=== PATIENT | female | born 1995 | race Caucasian/White ===

== ENCOUNTER 2016-08-27 13:50 | Emergency (ER) | payer OTHER ==
--- NOTE | 2016-08-27 15:48 | DIAGNOSTIC IMAGING REPORT ---
PROCEDURE: CT HEAD WITHOUT CONTRAST INDICATION: MENTAL STATUS CHANGE TECHNIQUE: Axial CT images were acquired through the head. Coronal and sagittal reformations were created. COMPARISON: None. FINDINGS: No intracranial hemorrhage or extraaxial fluid collections. Ventricles are normal in size, shape and position. There is no mass, mass effect or midline shift. The valenzuela-white matter differentiation is normal. There is no edema. The calvarium is intact. The paranasal sinuses and mastoid air cells are normally aerated. The extracranial soft tissues and orbits are normal. IMPRESSION: 1. No CT evidence of acute intracranial process. 2. Findings discussed with SILVIA Diaz, covering for Dr. Benitez at [address] scans at this facility use dose modulation, iterative reconstruction, and/or weight-based dosing when appropriate to reduce radiation dose to as low as reasonably achievable.
--- NOTE | 2016-08-27 17:07 | ED ORDER SUMMARY ---
..... Patient: BECKY GUILLORY OrderSheet [facility] VisitID: [id number] [place] [address] 20y, F Registration Date/Time: 08/27/2016 ORDER SHEET Weight: 74.3 kg (stated) Allergies: Eye Drops GENERAL ORDERS: CBC w Diff Urgent (14:08/27/2016 Raul Kirkland) (Ack 14:23 TBergley) (15:15 SRoberts R.N.) CMP Urgent (14:08/27/2016 Raul Kirkland) (Ack 14:23 TBergley) (15:15 Ashanti R.N.) PT with INR Urgent (14:08/27/2016 Raul Kirkland) (Ack 14:23 TBergley) (15:15 Ashanti R.N.) PTT Urgent (14:08/27/2016 Raul Kirkland) (Ack 14:23 TBergley) (15:15 oberts R.N.) UA-Culture if indicated Urgent (14:08/27/2016 Raul Kirkland) (Ack 14:23 TBergley) (15:15 oberts R.N.) Serum Quantitative Urgent (14:08/27/2016 Raul Kirkland) (Ack 14:23 TBergley) (15:15 Ashanti R.N.) Heart Tones (14:08/27/2016 Raul Kirkland) (Ack 14:23 TBergley) (15:32 KWilliams R.N.) CT Head wo Cont Urgent (14:34 08/27/2016 Raul Kirkland) (Ack 14:36 TBergley) (15:15 SRobernena R.N.) MEDICATION ORDERS: IV FLUIDS: IV NS : initial bolus 1000 mL (1000 mL/hr), then none - for X1 (NOW) (14:08/27/2016 Raul Kirkland) (15:35 SRoberts R.N.) ORDER SHEET NOTES: [Electronically signed by Linnette Shore R.N. (19:08/27/2016)] [Electronically signed by Jl Benitez Dr. (06:09 08/30/2016)] [Electronically locked/signed by Linnette Shore R.N. (19:08/27/2016)]
--- NOTE | 2016-08-27 17:07 | ED ORDER SUMMARY ---
..... Patient: BECKY GUILLORY OrderSheet [facility] VisitID: [id number] [place] [address] 20y, F Registration Date/Time: 08/27/2016 ORDER SHEET Weight: 74.3 kg (stated) Allergies: Eye Drops GENERAL ORDERS: CBC w Diff Urgent (14:08/27/2016 Raul Kirkland) (Ack 14:23 TBergley) (15:15 SRoberts R.N.) CMP Urgent (14:08/27/2016 Raul Kirkland) (Ack 14:23 TBergley) (15:15 Ashanti R.N.) PT with INR Urgent (14:08/27/2016 Raul Kirkland) (Ack 14:23 TBergley) (15:15 Ashanti R.N.) PTT Urgent (14:08/27/2016 Raul Kirkland) (Ack 14:23 TBergley) (15:15 oberts R.N.) UA-Culture if indicated Urgent (14:08/27/2016 Raul Kirkland) (Ack 14:23 TBergley) (15:15 oberts R.N.) Serum Quantitative Urgent (14:08/27/2016 Raul Kirkland) (Ack 14:23 TBergley) (15:15 Ashanti R.N.) Heart Tones (14:08/27/2016 Raul Kirkland) (Ack 14:23 TBergley) (15:32 KWilliams R.N.) CT Head wo Cont Urgent (14:34 08/27/2016 Raul Kirkland) (Ack 14:36 TBergley) (15:15 SRobernena R.N.) MEDICATION ORDERS: IV FLUIDS: IV NS : initial bolus 1000 mL (1000 mL/hr), then none - for X1 (NOW) (14:08/27/2016 Raul Kirkland) (15:35 SRoberts R.N.) ORDER SHEET NOTES: [Electronically signed by Linnette Shore R.N. (19:08/27/2016)] [Electronically signed by Jl Benitez Dr. (06:09 08/30/2016)] [Electronically locked/signed by Linnette Shore R.N. (19:08/27/2016)]
--- NOTE | 2016-08-27 17:07 | ED NURSING NOTES ---
Clinical Report - Nurses [facility] [address] [place] [address] 08/27/2016 13:52 Patient: BECKY GUILLORY TRIAGE Triage time 13:50. Acuity: LEVEL 3. Chief Complaint: (dizzy). Alert. --14:00 Shubham Weaver R.N. 13:53 08/27/16. BP: 124/70. HR: 95. RR: 18. O2 saturation: 98%. Temp: 98.4 F. Pain level now 06/30. --14:00 Shubham Weaver R.N. Weight: 74.3 kg stated. Height/Length: 60 inches Per Patient. BMI: 32. --13:57 Shubham Weaver R.N. Medications Nausea med. --13:58 Shubham Weaver R.N. Acid reflux med. --13:58 Shubham Weaver R.N. Allergies Eye Drops. --13:59 Shubham Weaver R.N. History Arrived by private vehicle. Historian: patient. Accompanied by family. Primary physician (Rahat (ob-cable tester)). ( 39 weeks . pt presents with c/o "I think I had a stroke." FAST exam negative. She states she was outside and felt dizzy with blurry vision and states she was having memory problems. Denies any PIH, Preeclampsia or problems with . Tearful in triage, anxious, c/o numb fingers. Accompanied by sister in law who states pt is having trouble remembering baby's name, common words, etc. Pt denies substance use. Denies contractions other than BH contractions.). PAST MEDICAL HX: OB history: G 1; P 0; Ab 0. SOCIAL HX: Current some days light tobacco smoker (cigarette)- less than 1/2 a pack per day. No alcohol use or drug use. FALL RISK ASSESSMENT: Fall risk assessment completed. No fall risk identified. NUTRITIONAL RISK ASSESSMENT: The nutritional risk assessment revealed no deficiencies. FUNCTIONAL ASSESSMENT: Functional assessment: no impairments noted. LEARNING NEEDS ASSESSMENT: The learning needs assessment revealed no barriers. SKIN INTEGRITY ASSESSMENT: Skin integrity risk assessment completed. No skin integrity risk identified. --14:00 Shubham Weaver R.N. 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 --14:00 Shubham Weaver R.N. This started just prior to arrival. --14:00 Shubham Weaver R.N. PROBLEMS: no known problems. ADDITIONAL SURGERIES: no known surgeries. Interventions ID band on patient. To treatment room. --14:00 Shubham Weaver R.N. PHYSICAL ASSESSMENT 14:01 08/27/16. Ambulatory to room. GENERAL / NEURO / PSYCH: Oriented X 4. ( slow responses). RESPIRATORY: Respirations not labored. CVS: Capillary refill less than 2 seconds. GI / : Abdomen soft. SKIN: Skin is warm and dry. --14:01 Shubham Weaver R.N. NURSING PROGRESS NOTES The plan of care for this patient has been created. Patient gowned. Call light placed in reach. Bed placed in lowest position. Brakes of bed on. --14:01 Shubham Weaver R.N. 15:15 08/27/2016 Site #1 started via IV in the left antecubital space with an 20g angiocath, with aseptic technique and good blood return; one attempt. Blood drawn: rainbow set. Labeled in the presence of the patient and sent to the lab. Saline lock flushed with 10 mL saline. --15:15 Linnette Shore R.N. 15:25 08/27/2016 Started bag #1 1000 mL IV Fluids IV NS (Saline); bolus of 1000 mL over 1 hour(s) then at 1000 mL/hr over 1 hour(s) via site #1 via IV pump. Allergies verified and confirmed 5 rights. IV patency established. IV site checked: no pain, redness, or swelling. IV flushed thoroughly pre- and post-medication administration. --15:35 Linnette Shore R.N. DISPOSITION / DISCHARGE 17:25. Condition at departure: improved. No learning barriers present. Discharge instructions provided and reviewed with the patient and spouse. Patient verbalized understanding. Written instructions provided in [place]. ( Patient to go directly to [place] L&D.). The patient was accompanied by spouse and discharged (Prov L/D). She left the Emergency Department ambulatory and via private vehicle. Spouse driving. Medication list reviewed and validated. --19:23 Linnette Shore R.N. 17:25 08/27/16. BP: 122/72. HR: 70. RR: 16. O2 saturation: 100% on room air. Temp: deferred. Pain level now: 06/30. 16:10 08/27/16. BP: 118/69. HR: 69. RR: 18. O2 saturation: 100% on room air. 15:10 08/27/16. BP: 118/74. HR: 72. RR: 16. O2 saturation: 100% on room air. 13:53 08/27/16. BP: 124/70. HR: 95. RR: 18. O2 saturation: 98%. Temp: 98.4 F. Pain level now 06/30. --19:23 Linnette Shore R.N. Locked/Released at 08/27/2016 19:23 by Linnette Shore R.N.
--- NOTE | 2016-08-27 17:07 | ED CLINICAL REPORT ---
Clinical Report - Physicians/Mid Levels [facility] [address] [place] [address] 08/27/2016 13:52 Patient: BECKY GUILLORY Arrived- By private vehicle. Historian- patient. HISTORY OF PRESENT ILLNESS Chief Complaint: altered mental status. The patient has had mild difficulty with speech (difficulty finding words and names). No visual disturbance or impaired swallowing. This started today, patient was last known well (2 hours prior to arrival) and is still present but is improving. It was abrupt in onset and has been constant but is not gone now. At its maximum deficit described as mild. When seen in the E.D., it was almost gone. The patient has had dizziness. No altered mental status, seizure or blackouts. Usually is alert and oriented X3. (reports that she is approximately 36 weeks . No acute abnormalities noted on patient's workup per patient. States that she follows up with a doctor in [facility]. No recent illnesses. Patient reports no other symptoms at this time.). Similar symptoms previously: None. Recent medical care: Not recently seen/assessed. REVIEW OF SYSTEMS No fever, chest pain or difficulty breathing. All systems otherwise negative, except as recorded above. PAST HISTORY See nurses notes. SOCIAL HISTORY Never smoker. No alcohol use or drug use. No recent travel. Is a local resident. PHYSICAL EXAM Appearance: Alert. No acute distress. Head: Head atraumatic. Eyes: Pupils equal, round and reactive to light. ENT: Normal ENT inspection. Airway intact. Pharynx normal. Neck: Normal inspection. Neck supple. CVS: Normal heart rate and rhythm. Heart sounds normal. Pulses normal. Respiratory: No respiratory distress. Breath sounds normal. Abdomen: Soft and nontender. No organomegaly. (gravid uterus with the fundus palpable at the xiphoid process). Back: Normal inspection. Skin: Skin warm and dry. Normal skin color. No rash. Normal skin turgor. Extremities: Extremities exhibit normal ROM. No lower extremity edema. Neuro: Alert. Oriented X 3. Mood/affect normal. Speech normal. Cranial nerves normal (as tested). No cerebellar findings. No motor deficit. No sensory deficit. Reflexes normal. LABS, X-RAYS, AND EKG CT Head: (PROCEDURE: CT HEAD WITHOUT CONTRAST INDICATION: MENTAL STATUS CHANGE TECHNIQUE: Axial CT images were acquired through the head. Coronal and sagittal reformations were created. COMPARISON: None. FINDINGS: No intracranial hemorrhage or extraaxial fluid collections. Ventricles are normal in size, shape and position. There is no mass, mass effect or midline shift. The valenzuela-white matter differentiation is normal. There is no edema. The calvarium is intact. The paranasal sinuses and mastoid air cells are normally aerated. The extracranial soft tissues and orbits are normal. IMPRESSION: 1. No CT evidence of acute intracranial process. 2. Findings discussed with SILVIA Diaz, covering for Dr. Benitez at [address] performed with and without contrast. The study was independently viewed by me and interpreted by the radiologist. The study was discussed with the radiologist (via pacs). Laboratory Tests: UA-Culture if indicated: (NOEMÍ: 08/27/2016 15:00) ( [facility]47[facility] Final results Test Result Flag Units (Reference) URINE COLOR YELLOW URINE APPEARANCE CLEAR URINE GLUCOSE NEGATIVE (NEGATIVE) URINE BILIRUBIN NEGATIVE (NEGATIVE) URINE KETONE NEGATIVE (NEGATIVE) URINE SPECIFIC GRAVITY 1.010 (1.010-1.030) URINE PH 7.0 (5.0-8.0) URINE PROTEIN NEGATIVE (NEGATIVE) URINE UROBILINOGEN 0.2 EU/dL (0.2-1.0) URINE NITRITE NEGATIVE (NEGATIVE) URINE BLOOD NEGATIVE (NEGATIVE) URINE LEUK ESTERASE NEGATIVE (NEGATIVE) URINE RBC NONE SEEN rbc/hpf (0-1) URINE WBC 0-1 wbc/hpf (0-1) URINE EPITHELIAL CELLS 1-3 EPI/hpf (0-5) URINE BACTERIA TRACE (<1+) (NONE SEEN) URINE COMMENT CULT NOT INDICATED URINE CULTURES ARE SET-UP BASED ON THE FOLLOWING CRITERIA:POSITIVE NITRITEPOSITIVE LEUKOCYTE ESTERASEGREATER THAN 10 WHITE BLOOD CELLSMODERATE (2+) OR GREATER BACTERIA CBC w Diff: (NOEMÍ: 08/27/2016 15:05) ( [facility] 08/27/2016 15:30) Final results Test Result Flag Units (Reference) WHITE BLOOD COUNT 10.5 K/uL (4.5-11.5) RED BLOOD COUNT 3.41 L M/uL (4.00-5.20) HEMOGLOBIN 8.6 L gm/dL (12.0-16.0) HEMATOCRIT 26.7 L % (36.0-46.0) MEAN CELL VOLUME 78 L fL (80-100) MEAN CORPUSCULAR HGB 25 L pg (26-34) MEAN CORPUSCULAR HGB CONC 32 g/dL (31-37) RED CELL DISTRIBUTION WIDTH 16.5 H % (11.6-14.8) PLATELET COUNT 312 K/uL (150-400) NEUTROPHIL % 72.4 % (50-75) LYMPH % 18.7 L % (25-40) MONO % 8.5 % (3-14) EOSINOPHIL % 0.2 % (0-4) BASOPHIL % 0.2 % (0-2) PT with INR: (NOEMÍ: 08/27/2016 15:05) ( [facility] 08/27/2016 15:41) Final results Test Result Flag Units (Reference) INR 0.9 (0.8-1.2) Low Intensity Therapy: INR 1.5-2.0 PT range 18.5-23.1Mod.Intensity Therapy: INR 2.0-3.0 PT range 23.1-31.5High Intensity Therapy: INR 2.5-3.5 PT range 27.4-35.5High Intensity Therapy 2: INR 3.0-4.0 PT range 31.5-39.3 APTT 27 SECONDS (24-34) CMP: (NOEMÍ: 08/27/2016 15:05) ( [facility] 08/27/2016 16:02) Final results Test Result Flag Units (Reference) GLUCOSE 83 mg/dL (70-110) BUN 8 mg/dL (7-18) CREATININE 0.7 mg/dL (0.6-1.3) Estimated GFR >60 mL/min Estimated GFR- >60 mL/min Note: Persistent reduction over 3 months in eGFR<60 mL/min/1.73 m2 defines CKD. Patients with eGFR values>=60 mL/min/1.73 m2 may also have CKD if evidence ofpersistent proteinuria. Additional information may be foundat www.kidney.org. SODIUM 137 mmol/L (136-145) POTASSIUM 4.1 mmol/L (3.5-5.1) CHLORIDE 103 mmol/L (98-107) CARBON DIOXIDE 23 mmol/L (21-32) CALCIUM 9.4 mg/dL (8.5-10.1) TOTAL PROTEIN 7.7 g/dL (6.4-8.2) ALBUMIN 2.9 L g/dL (3.3-5.0) BILIRUBIN, TOTAL 0.2 mg/dL (0.0-1.0) ALKALINE PHOSPHATASE 169 H U/L (46-116) AST (SGOT) 30 U/L (15-37) ALT (SGPT) 28 U/L (12-78) BETA HCG, QUANTITATIVE 73232 mIU/mL REFERENCE RANGE:Adult Males: <2 mIU/mLNon- Females: <6 mIU/mL Females:Approximate Approximate hCGGestational Age Range (mIU/mL) 0-1 week 0-501-2 weeks 40-3002-3 weeks 100-92521-1 weeks 500-02688-3 months 5,000-200,0002-3 months 10,000-100,0002nd trimester 3,000-50,0003rd trimester 1,000-50,000 . PROGRESS AND PROCEDURES Course of Care: the patient is a pleasant 20-year-old female who is 39 weeks and a presenting for evaluation of difficulty with speaking. At this time differential diagnosis includes Preeclampsia, acute cerebrovascular accident or global hypoperfusion secondary to . Patient without any focal neurological deficits on examination. Speech is regular with normal shamika and vocabulary. Patient will be given a bolus of fluids while here in the emergency department as well asdrawn up laboratory studies for other causes for the patient's to have difficulty with speech. We'll be evaluating for infectious etiologies as well as metabolic abnormalities oranemia. Patient is agreeable to the treatment plan. Because of the patient's minimal symptoms, do not feel patient is candidate for TPA. Patient is also and would be dangerous to the mother and unborn childiif given this medication. Do not fill benefits of this medication outweigh the risks. Also had a discussion with the patient in regards to CT scan of the head. After reviewing the risks and benefits of the procedure, patient states that she would like to think about it. After a short while, the patient was agreeable to the CT scan of the head. CT scan of the head was ordered. Laboratory studies are pending. Patient's workup was remarkable for the findings above. No acute abnormalities noted. no signs of preeclampsia. no signs of help syndrome. Patient with normal heart tones. CT scan of the head is negative. No acute findings noted. Symptoms had completely resolved while here in the emergency department. Was able to contact the on-call doctor for the patient's FR[employer]IP[employer] CRUS[employer]. Recommended that he patient be sent to their labor and delivery service for further monitoring of the patient's . Patient's symptoms are likely due to mild anemia noted on atient's blood work and decreased preload and likely hypoperfusion secondary to . Because the patient's fluid bolus and complete resolution of her symptoms, do not feel patient needs to be admitted here however does need to be monitored at [facility]. offered patient to be transferred via ambulance however patient declines at this time. Discussed with the patient her workup here in the emergency department including diagnosis, and pl All questions have been answered. The patient expressed understanding of these instructions and was agreeable to them. CLINICAL IMPRESSION hypotension, acute from IVC comprssion resolved altered mental status, resolved. INSTRUCTIONS (Please go straight to the labor and delivery in [place] for further evaluation.). Your Current Medications: CONTINUE TAKING THE FOLLOWING MEDICATIONS: Acid reflux med*. Nausea med*. Follow-up: Return to the emergency department as needed. Follow up with your doctor. Reason for referral: Today. Go straight to [place] in [place] Screening today revealed the patient's blood pressure to be in the normal range. The patient should follow up with a primary care provider for blood pressure management. Understanding of the discharge instructions verbalized by patient. (Electronically signed by Jl Benitez Dr. 08/30/2016 6:09)
--- NOTE | 2016-08-27 17:07 | ED NURSING NOTES ---
Clinical Report - Nurses [facility] [address] [place] [address] 08/27/2016 13:52 Patient: BECKY GUILLORY TRIAGE Triage time 13:50. Acuity: LEVEL 3. Chief Complaint: (dizzy). Alert. --14:00 Shubham Weaver R.N. 13:53 08/27/16. BP: 124/70. HR: 95. RR: 18. O2 saturation: 98%. Temp: 98.4 F. Pain level now 06/30. --14:00 Shubham Weaver R.N. Weight: 74.3 kg stated. Height/Length: 60 inches Per Patient. BMI: 32. --13:57 Shubham Weaver R.N. Medications Nausea med. --13:58 Shubham Weaver R.N. Acid reflux med. --13:58 Shubham Weaver R.N. Allergies Eye Drops. --13:59 Shubham Weaver R.N. History Arrived by private vehicle. Historian: patient. Accompanied by family. 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 ( 39 weeks . pt presents with c/o "I think I had a stroke." FAST exam negative. She states she was outside and felt dizzy with blurry vision and states she was having memory problems. Denies any PIH, Preeclampsia or problems with . Tearful in triage, anxious, c/o numb fingers. Accompanied by sister in law who states pt is having trouble remembering baby's name, common words, etc. Pt denies substance use. Denies contractions other than BH contractions.). PAST MEDICAL HX: OB history: G 1; P 0; Ab 0. SOCIAL HX: Current some days light tobacco smoker (cigarette)- less than 1/2 a pack per day. No alcohol use or drug use. FALL RISK ASSESSMENT: Fall risk assessment completed. No fall risk identified. NUTRITIONAL RISK ASSESSMENT: The nutritional risk assessment revealed no deficiencies. FUNCTIONAL ASSESSMENT: Functional assessment: no impairments noted. LEARNING NEEDS ASSESSMENT: The learning needs assessment revealed no barriers. SKIN INTEGRITY ASSESSMENT: Skin integrity risk assessment completed. No skin integrity risk identified. --14:00 Shubham Weaver R.N. 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 --14:00 Shubham Weaver R.N. This started just prior to arrival. --14:00 Shubham Weaver R.N. PROBLEMS: no known problems. ADDITIONAL SURGERIES: no known surgeries. Interventions ID band on patient. To treatment room. --14:00 Shubham Weaver R.N. PHYSICAL ASSESSMENT 14:01 08/27/16. Ambulatory to room. GENERAL / NEURO / PSYCH: Oriented X 4. ( slow responses). RESPIRATORY: Respirations not labored. CVS: Capillary refill less than 2 seconds. GI / : Abdomen soft. SKIN: Skin is warm and dry. --14:01 Shubham Weaver R.N. NURSING PROGRESS NOTES The plan of care for this patient has been created. Patient gowned. Call light placed in reach. Bed placed in lowest position. Brakes of bed on. --14:01 Shubham Weaver R.N. 15:15 08/27/2016 Site #1 started via IV in the left antecubital space with an 20g angiocath, with aseptic technique and good blood return; one attempt. Blood drawn: rainbow set. Labeled in the presence of the patient and sent to the lab. Saline lock flushed with 10 mL saline. --15:15 Linnette Shore R.N. 15:25 08/27/2016 Started bag #1 1000 mL IV Fluids IV NS (Saline); bolus of 1000 mL over 1 hour(s) then at 1000 mL/hr over 1 hour(s) via site #1 via IV pump. Allergies verified and confirmed 5 rights. IV patency established. IV site checked: no pain, redness, or swelling. IV flushed thoroughly pre- and post-medication administration. --15:35 Linnette Shore R.N. DISPOSITION / DISCHARGE 17:25. Condition at departure: improved. No learning barriers present. Discharge instructions provided and reviewed with the patient and spouse. Patient verbalized understanding. Written instructions provided in [place]. ( Patient to go directly to [place] L&D.). The patient was accompanied by spouse and discharged (Prov L/D). She left the Emergency Department ambulatory and via private vehicle. Spouse driving. Medication list reviewed and validated. --19:23 Linnette Shore R.N. 17:25 08/27/16. BP: 122/72. HR: 70. RR: 16. O2 saturation: 100% on room air. Temp: deferred. Pain level now: 06/30. 16:10 08/27/16. BP: 118/69. HR: 69. RR: 18. O2 saturation: 100% on room air. 15:10 08/27/16. BP: 118/74. HR: 72. RR: 16. O2 saturation: 100% on room air. 13:53 08/27/16. BP: 124/70. HR: 95. RR: 18. O2 saturation: 98%. Temp: 98.4 F. Pain level now 06/30. --19:23 Linnette Shore R.N. Locked/Released at 08/27/2016 19:23 by Linnette Shore R.N.
--- NOTE | 2016-08-30 06:09 | ED MED RECONCILIATION SUMMARY ---
Patient: BCEKY GUILLORY Medication Reconciliation Report [facility] VisitID: [id number] [address] [place] [place] [address] 20y, F Registration Date/Time: 08/27/2016 Weight: 74.3 kg Height/Length: 60 in. BMI: 32.0 ALLERGIES: Eye Drops The patient's Home Medications are listed below: CONTINUE TAKING THE FOLLOWING MEDICATIONS: Acid reflux med Nausea med The source(s) of the original Home Medication information: Not obtained. The following Medications were given to the patient in the Emergency Department: IV NS IV Fluids bolus 1000 mL over 1 hour(s), then 1000 mL/hr, administered: 08/27/2016 3:25:00 PM The following Medications were prescribed to the patient: None.
--- NOTE | 2016-08-30 06:09 | ED MAR SUMMARY ---
..... Medication Administration Record [facility] [address] [place] [address] Patient: BECKY GUILLORY Visit ID: [id number] 20y, F Weight: 74.3 kg Height/Length: 60 in BMI: 32 ALLERGIES: Eye Drops Start 15:25 08/27/2016 Linnette Shore R.N. Medication Administered: IV NS (SALINE), Dose: IV Fluids over 1 hour(s), Rate: 1000 mL/hr, Bolus: 1000 mL over 1 hour(s), Dispensed: 1000 mL bag, Site: #1 left AC. Medication Ordered: IV NS : initial bolus 1000 mL (1000 mL/hr), then none - for X1 (NOW).
--- NOTE | 2016-08-30 06:09 | ED MAR SUMMARY ---
..... Medication Administration Record [facility] [address] [place] [address] Patient: BECKY GUILLORY Visit ID: [id number] 20y, F Weight: 74.3 kg Height/Length: 60 in BMI: 32 ALLERGIES: Eye Drops Start 15:25 08/27/2016 Linnette Shore R.N. Medication Administered: IV NS (SALINE), Dose: IV Fluids over 1 hour(s), Rate: 1000 mL/hr, Bolus: 1000 mL over 1 hour(s), Dispensed: 1000 mL bag, Site: #1 left AC. Medication Ordered: IV NS : initial bolus 1000 mL (1000 mL/hr), then none - for X1 (NOW).
--- NOTE | 2016-08-30 06:09 | ED MED RECONCILIATION SUMMARY ---
Patient: BECKY GUILLORY Medication Reconciliation Report [facility] VisitID: [id number] [address] [place] [address] 20y, F Registration Date/Time: 08/27/2016 Weight: 74.3 kg Height/Length: 60 in. BMI: 32.0 ALLERGIES: Eye Drops The patient's Home Medications are listed below: CONTINUE TAKING THE FOLLOWING MEDICATIONS: Acid reflux med Nausea med The source(s) of the original Home Medication information: Not obtained. The following Medications were given to the patient in the Emergency Department: IV NS IV Fluids bolus 1000 mL over 1 hour(s), then 1000 mL/hr, administered: 08/27/2016 3:25:00 PM The following Medications were prescribed to the patient: None.
--- NOTE | 2016-08-30 06:09 | ED DISCHARGE INSTRUCTIONS ---
Patient: BECKY GUILLORY General Instructions [facility] VisitID: [id number] [place] [address] 20y, F Registration Date/Time: 08/27/2016 hypotension, acute from IVC comprssion resolved altered mental status, resolved. INSTRUCTIONS (Please go straight to the labor and delivery in [place] for further evaluation.). Your Current Medications: CONTINUE TAKING THE FOLLOWING MEDICATIONS: Acid reflux med*. Nausea med*. Follow-up: Return to the emergency department as needed. Follow up with your doctor. Reason for referral: Today. Go straight to [place] in [place] Screening today revealed the patient's blood pressure to be in the normal range. The patient should follow up with a primary care provider for blood pressure management. Understanding of the discharge instructions verbalized by patient. (Electronically signed by Jl Benitez Dr. 08/30/2016 6:09)
--- NOTE | 2016-08-30 06:09 | ED DISCHARGE INSTRUCTIONS ---
Patient: BECKY GUILLORY General Instructions [facility] VisitID: [id number] [place] [address] 20y, F Registration Date/Time: 08/27/2016 hypotension, acute from IVC comprssion resolved altered mental status, resolved. INSTRUCTIONS (Please go straight to the labor and delivery in [place] for further evaluation.). Your Current Medications: CONTINUE TAKING THE FOLLOWING MEDICATIONS: Acid reflux med*. Nausea med*. Follow-up: Return to the emergency department as needed. Follow up with your doctor. Reason for referral: Today. Go straight to [place] in [place] Screening today revealed the patient's blood pressure to be in the normal range. The patient should follow up with a primary care provider for blood pressure management. Understanding of the discharge instructions verbalized by patient. (Electronically signed by Jl Benitez Dr. 08/30/2016 6:09)
== END 2016-08-27 17:25 | disposition home or self-care (01) ==
LOC: ED SRH 13:50
DX: O26.893 Other specified pregnancy related conditions, third trimester (principal); I87.1 Compression of vein; I95.9 Hypotension, unspecified; O99.89 Other specified diseases and conditions complicating pregnancy, childbirth and the puerperium; R41.82 Altered mental status, unspecified; Z3A.39 39 weeks gestation of pregnancy
CPT/HCPCS: 90004; 90100; 90197; 94001; 94060; 95059

== ENCOUNTER 2016-11-06 23:10 | Emergency (ER) | payer OTHER ==
--- NOTE | 2016-11-07 00:19 | DIAGNOSTIC IMAGING REPORT ---
PROCEDURE: XR ANKLE 3 OR 4 VIEWS - RIGHT INDICATION: TRAUMA/INJURY TECHNIQUE: Four views. COMPARISON: None. FINDINGS: Osseous structures, joint spaces and soft tissues are normal. Ankle mortise is normal. IMPRESSION: 1. Normal right ankle.
--- NOTE | 2016-11-07 00:33 | ED NURSING NOTES ---
Clinical Report - Nurses [facility] [address] [place] [address] 11/06/2016 23:10 [id number] Triage time 23:32. Acuity: LEVEL 4. Chief Complaint: INJURY TO RIGHT ANKLE. --23:39 Lesley Calles R.N. 23:32 11/06/16. BP: 120/69 taken on the left arm, while lying. HR: 63. RR: 18. O2 saturation: 98% on room air. Temp: 98.4 F. Pain level now: 09/27. --23:39 Lesley Calles R.N. Weight: 58.9 kg stated. Height/Length: 60 inches Per Patient. BMI: 25.4. --23:35 Lesley Calles R.N. Medications None. --23:34 Lesley Calles R.N. Allergies Sulfa Antibiotics. --23:34 Lesley Calles R.N. Eye Drops. --23:34 Lesley Calles R.N. History Arrived by private vehicle. Historian: patient. Accompanied by family. Primary physician ([facility]). This occurred today (1999). Mechanism of injury: sustained an internal rotation injury while stepping down. ( stepped down and rolled right ankle). Treatment RIVER DRIVER: Ice. PAST MEDICAL HX: Tetanus status: up-to-date. Immunizations: up-to-date. The patient is lactating. 1. Para 1. SOCIAL HX: Light tobacco smoker (cigarette)- less than 1/2 a pack per day. No alcohol use or drug use. No infectious disease exposure. ABUSE ASSESSMENT: No report of abuse. SELF HARM ASSESSMENT: A self harm assessment was performed. The patient answered "no" to the question "Have you recently felt down, depressed, or hopeless?", "Have you noticed less interest or pleasure in doing things?", "Do you have thoughts of harming or killing yourself?", "Are you here because you tried to hurt yourself?", "Have you ever tried to hurt yourself before today?", "Have you recently had thoughts about harming or killing others?" and "Do you have any dangerous items in your possession?". FALL RISK ASSESSMENT: Fall risk assessment completed. No fall risk identified. NUTRITIONAL RISK ASSESSMENT: The nutritional risk assessment revealed no deficiencies. FUNCTIONAL ASSESSMENT: Functional assessment: no impairments noted. LEARNING NEEDS ASSESSMENT: The learning needs assessment revealed no barriers. SKIN INTEGRITY ASSESSMENT: Skin integrity risk assessment completed. No skin integrity risk identified. --23:39 Lesley Calles R.N. PROBLEMS: Asthma. --23:35 Lesley Calles R.N. ADDITIONAL SURGERIES: . --23:35 Lesley Calles R.N. Interventions ID band on patient. --23:39 Lesley Calles R.N. PHYSICAL ASSESSMENT (hopped). GENERAL / NEURO / PSYCH: Oriented X 4. Alert. Appears in no acute distress. EXTREMITIES: Capillary refill is less than 2 seconds in the extremities. Extremity pulses are within normal limits. She was unable to bear weight. (right foot). Neuro-vascular status intact to the extremity. Right foot: tenderness, swelling and ecchymosis of the proximal aspect of the mid foot. Limited weight bearing secondary to pain. SKIN: Skin intact. Skin is warm and dry. --23:40 Lesley Calles R.N. NURSING PROGRESS NOTES Two patient identifiers checked. Call light placed in reach. Side rails up x 1. Bed placed in lowest position. Brakes of bed on. Patient ready for evaluation- chart flagged. --23:40 Lesley Calles R.N. Portable x-ray performed and right ankle and right foot x-ray performed (23:47). --23:47 Lesley Calles R.N. 00:37 11/07/2016 Hydrocodone-APAP (Hydrocodone-Acetaminophen) PO 5/325 mg Tablets 1 tab given. Allergies verified, confirmed 5 rights and sedative warning given to the patient. --00:37 Lesley Calles R.N. Short leg posterior fiberglass lower extremity splint applied to right leg and foot by tech. Distal pulses intact, sensation intact and motor within normal limits. Patient fit with new crutches. Crutch training performed by [employer]; the patient demonstrated proper use. --01:09 Pat Oconnor. DISPOSITION / DISCHARGE Departure time: 104. Condition at departure: improved and stable. No learning barriers present. Discharge instructions provided and reviewed with the patient and family. Reviewed medication(s) side effects, precautions, dosing and course information. Prescription(s) given to the patient. Reviewed referral to a energy conservation engineer for followup. Activity restrictions (minimal use of injured extremity) reviewed. Patient verbalized understanding. Written instructions provided in Ugandan. The patient was discharged home and accompanied by family. She left the Emergency Department on crutches and via private vehicle. Family member driving. --01:13 Lesley Calles R.N. 01:11 11/07/16. BP: 137/84 taken on the left arm, while sitting. HR: 76 (regular and normal rate). RR: 18 (regular). O2 saturation: 99% on room air. Temp: deferred. Pain level now: 08/28. --01:13 Lesley Calles R.N. Locked/Released at 11/07/2016 1:14 by Lesley Calles R.N.
--- NOTE | 2016-11-07 00:33 | ED CLINICAL REPORT ---
Clinical Report - Physicians/Mid Levels [facility] [address] [place] [address] 11/06/2016 23:10 [id number] Time Seen: 00:14 Nov 07 2016. Arrived- By private vehicle. Historian- patient. CPT: ER phys charges level 3 (#030304). HISTORY OF PRESENT ILLNESS Chief Complaint: Injury to the right ankle. The injury happened today. Occurred on a street. ( This occurred today (1999). Mechanism of injury: sustained an internal rotation injury while stepping down. ( stepped down and rolled right ankle).). The patient sustained a twisting injury. Patient is experiencing moderate pain. No other injury. REVIEW OF SYSTEMS The patient complains of pain on weight bearing. She has had swelling. No skin laceration. All systems otherwise negative, except as recorded above. PAST HISTORY See nurses notes. Medications: None. Allergies: Eye Drops. Sulfa Antibiotics. SOCIAL HISTORY Light tobacco smoker (cigarette)- less than 1/2 a pack per day. No alcohol use or drug use. ADDITIONAL NOTES The nursing notes have been reviewed. PHYSICAL EXAM Vital Signs: 11/06/2016 23:32 BP: 120/69. HR: 63. RR: 18. O2 saturation: 98%. Temp: 98.4 F. Pain level now: 5/10. Appearance: Alert. Appears to be in pain. Patient in mild distress. Back: Normal inspection. No tenderness. ROM normal. Skin: Skin intact. Skin warm. Extremities: Right lateral ankle: mild tenderness and swelling of the lateral ligaments. Limited ROM secondary to pain. Neurovascular intact distally. No ligamentous laxity present. No joint effusion. No deformity. Base of the right 5th metatarsal: moderate tenderness and swelling and medium sized ecchymosis. Weight bearing painful. Neurovascular intact distally. No deformity. Extremities otherwise negative. Neuro, Vascular and Tendons: Vascular status intact. Sensation intact. Motor intact. Gait: Gait not tested due to pain. Neuro: Oriented X 3. No motor deficit. No sensory deficit. LABS, X-RAYS, AND EKG Rt Ankle X-ray: (Fracture fragment seen over the tarsal-metatarsal joint , 5th digit. Not seen well on foot series.). Views: 3 view ankle series. Technique: good. The X-rays were independently viewed by me and interpreted contemporaneously by me. Rt Foot X-ray: (Question of fracture at the base of the 5th metatarsal. More apparent on ankle view.). Views: 3 view foot series. Technique: good. The X-rays were independently viewed by me and interpreted contemporaneously by me. PROGRESS AND PROCEDURES Splint Application: Posterior short leg fiberglass splint applied to right foot and ankle. Splint applied by tech with direct supervision by me. Reassessed extremity following splint application. Neurovascular intact. Follow-up recommended within 7 days. Fitted for crutches by the tech. Course of Care: Vicodin 1 po. Patient/family counseled. Disposition: Discharged. Condition: stable. CLINICAL IMPRESSION Fracture of the base of the 5th metatarsal. INSTRUCTIONS Use crutches until released. Wear fiberglass splint until released. No weight bearing. Warnings: SEDATIVE MEDICATION: You were given sedative medication during your visit. Do not drive or operate dangerous machinery. Prescription Medications: Hydrocodone/APAP 5mg/325mg: take 1 to 2 orally every 6 hours as needed for pain. Dispense fifteen (15). No refills. Follow-up: Follow up with a picker packer Sunday in four days. Call for the next available appointment. Understanding of the discharge instructions verbalized by patient and parent. Follow-up with: Niranjan Cui DPM, Podiatry, , [facility], [address] [place] [address], [address] [place] [address] Follow up in four days. Call for an appointment. (Electronically signed by Lito Stone MD 11/08/2016 23:18)
--- NOTE | 2016-11-07 00:33 | ED NURSING NOTES ---
Clinical Report - Nurses [facility] [address] [place] [address] 11/06/2016 23:10 [id number] TRI[facility] Triage time 23:32. Acuity: LEVEL 4. Chief Complaint: INJURY TO RIGHT ANKLE. --23:39 Lesley Calles R.N. 23:32 11/06/16. BP: 120/69 taken on the left arm, while lying. HR: 63. RR: 18. O2 saturation: 98% on room air. Temp: 98.4 F. Pain level now: 09/27. --23:39 Lesley Calles R.N. Weight: 58.9 kg stated. Height/Length: 60 inches Per Patient. BMI: 25.4. --23:35 Lesley Calles R.N. Medications None. --23:34 Lesley Calles R.N. Allergies Sulfa Antibiotics. --23:34 Lesley Calles R.N. Eye Drops. --23:34 Lesley Calles R.N. History Arrived by private vehicle. Historian: patient. Accompanied by family. Primary physician ([facility]). This occurred today (1999). Mechanism of injury: sustained an internal rotation injury while stepping down. ( stepped down and rolled right ankle). Treatment LEARNING FACILITATOR: Ice. PAST MEDICAL HX: Tetanus status: up-to-date. Immunizations: up-to-date. The patient is lactating. 1. Para 1. SOCIAL HX: Light tobacco smoker (cigarette)- less than 1/2 a pack per day. No alcohol use or drug use. No infectious disease exposure. ABUSE ASSESSMENT: No report of abuse. SELF HARM ASSESSMENT: A self harm assessment was performed. The patient answered "no" to the question "Have you recently felt down, depressed, or hopeless?", "Have you noticed less interest or pleasure in doing things?", "Do you have thoughts of harming or killing yourself?", "Are you here because you tried to hurt yourself?", "Have you ever tried to hurt yourself before today?", "Have you recently had thoughts about harming or killing others?" and "Do you have any dangerous items in your possession?". FALL RISK ASSESSMENT: Fall risk assessment completed. No fall risk identified. NUTRITIONAL RISK ASSESSMENT: The nutritional risk assessment revealed no deficiencies. FUNCTIONAL ASSESSMENT: Functional assessment: no impairments noted. LEARNING NEEDS ASSESSMENT: The learning needs assessment revealed no barriers. SKIN INTEGRITY ASSESSMENT: Skin integrity risk assessment completed. No skin integrity risk identified. --23:39 Lesley Calles R.N. PROBLEMS: Asthma. --23:35 Lesley Calles R.N. ADDITIONAL SURGERIES: . --23:35 Lesley Calles R.N. Interventions ID band on patient. --23:39 Lesley Calles R.N. PHYSICAL ASSESSMENT (hopped). GENERAL / NEURO / PSYCH: Oriented X 4. Alert. Appears in no acute distress. EXTREMITIES: Capillary refill is less than 2 seconds in the extremities. Extremity pulses are within normal limits. She was unable to bear weight. (right foot). Neuro-vascular status intact to the extremity. Right foot: tenderness, swelling and ecchymosis of the proximal aspect of the mid foot. Limited weight bearing secondary to pain. SKIN: Skin intact. Skin is warm and dry. --23:40 Lesley Calles R.N. NURSING PROGRESS NOTES Two patient identifiers checked. Call light placed in reach. Side rails up x 1. Bed placed in lowest position. Brakes of bed on. Patient ready for evaluation- chart flagged. --23:40 Lesley Calles R.N. Portable x-ray performed and right ankle and right foot x-ray performed (23:47). --23:47 Lesley Calles R.N. 00:37 11/07/2016 Hydrocodone-APAP (Hydrocodone-Acetaminophen) PO 5/325 mg Tablets 1 tab given. Allergies verified, confirmed 5 rights and sedative warning given to the patient. --00:37 Lesley Calles R.N. Short leg posterior fiberglass lower extremity splint applied to right leg and foot by tech. Distal pulses intact, sensation intact and motor within normal limits. Patient fit with new crutches. Crutch training performed by [employer]; the patient demonstrated proper use. --01:09 Pat Oconnor. DISPOSITION / DISCHARGE Departure time: 104. Condition at departure: improved and stable. No learning barriers present. Discharge instructions provided and reviewed with the patient and family. Reviewed medication(s) side effects, precautions, dosing and course information. Prescription(s) given to the patient. Reviewed referral to a stevedoring supervisor for followup. Activity restrictions (minimal use of injured extremity) reviewed. Patient verbalized understanding. Written instructions provided in Japanese. The patient was discharged home and accompanied by family. She left the Emergency Department on crutches and via private vehicle. Family member driving. --01:13 Lesley Calles R.N. 01:11 11/07/16. BP: 137/84 taken on the left arm, while sitting. HR: 76 (regular and normal rate). RR: 18 (regular). O2 saturation: 99% on room air. Temp: deferred. Pain level now: 08/28. --01:13 Lesley Calles R.N. Locked/Released at 11/07/2016 1:14 by Lesley Calles R.N.
--- NOTE | 2016-11-07 00:33 | ED ORDER SUMMARY ---
..... Patient: BECKY GUILLORY R OrderSheet [facility] VisitID: [id number] [place] [address] 20y, F Registration Date/Time: 11/06/2016 ORDER SHEET Weight: 58.9 kg (stated) Allergies: Sulfa Antibiotics, Eye Drops GENERAL ORDERS: Foot 3V Right Urgent (23:41 11/06/2016 CBradburn R.N. per protocol) (Ack 23:44 IJurca ER Tech1) (23:46 CBradburn R.N.) Ankle 3 or 4V Right Urgent (23:43 11/06/2016 CBradburn R.N. per protocol) (Ack 23:44 IJurca ER Tech1) (23:46 CBradburn R.N.) Splint (LE) (Right) (Short Leg Posterior) (Fiberglass) (00:32 11/07/2016 Svetlana ALCAZAR) (0:39 CBradburn R.N.) Crutches (00:32 11/07/2016 Svetlana ALCAZAR) (0:39 CBradburn R.N.) MEDICATION ORDERS: Hydrocodone-APAP PO 5/325 mg (NOW) (00:32 11/07/2016 Svetlana ALCAZAR) (Ack 0:35 CBradburn R.N.) (0:37 CBradburn R.N.) IV FLUIDS: ORDER SHEET NOTES: [Electronically signed by Lesley Calles R.N. (01:11/07/2016)] [Electronically signed by Lito Stone MD (23:18 11/08/2016)] [Electronically locked/signed by Lesley Calles R.N. (:11/07/2016)]
--- NOTE | 2016-11-07 00:33 | ED CLINICAL REPORT ---
Clinical Report - Physicians/Mid Levels [facility] [address] [place] [address] 11/06/2016 23:10 [id number] Time Seen: 00:14 Nov 07 2016. Arrived- By private vehicle. Historian- patient. CPT: ER phys charges level 3 (#[id number]). HISTORY OF PRESENT ILLNESS Chief Complaint: Injury to the right ankle. The injury happened today. Occurred on a street. ( This occurred today (1999). Mechanism of injury: sustained an internal rotation injury while stepping down. ( stepped down and rolled right ankle).). The patient sustained a twisting injury. Patient is experiencing moderate pain. No other injury. REVIEW OF SYSTEMS The patient complains of pain on weight bearing. She has had swelling. No skin laceration. All systems otherwise negative, except as recorded above. PAST HISTORY See nurses notes. Medications: None. Allergies: Eye Drops. Sulfa Antibiotics. SOCIAL HISTORY Light tobacco smoker (cigarette)- less than 1/2 a pack per day. No alcohol use or drug use. ADDITIONAL NOTES The nursing notes have been reviewed. PHYSICAL EXAM Vital Signs: 11/06/2016 23:32 BP: 120/69. HR: 63. RR: 18. O2 saturation: 98%. Temp: 98.4 F. Pain level now: 5/10. Appearance: Alert. Appears to be in pain. Patient in mild distress. Back: Normal inspection. No tenderness. ROM normal. Skin: Skin intact. Skin warm. Extremities: Right lateral ankle: mild tenderness and swelling of the lateral ligaments. Limited ROM secondary to pain. Neurovascular intact distally. No ligamentous laxity present. No joint effusion. No deformity. Base of the right 5th metatarsal: moderate tenderness and swelling and medium sized ecchymosis. Weight bearing painful. Neurovascular intact distally. No deformity. Extremities otherwise negative. Neuro, Vascular and Tendons: Vascular status intact. Sensation intact. Motor intact. Gait: Gait not tested due to pain. Neuro: Oriented X 3. No motor deficit. No sensory deficit. LABS, X-RAYS, AND EKG Rt Ankle X-ray: (Fracture fragment seen over the tarsal-metatarsal joint , 5th digit. Not seen well on foot series.). Views: 3 view ankle series. Technique: good. The X-rays were independently viewed by me and interpreted contemporaneously by me. Rt Foot X-ray: (Question of fracture at the base of the 5th metatarsal. More apparent on ankle view.). Views: 3 view foot series. Technique: good. The X-rays were independently viewed by me and interpreted contemporaneously by me. PROGRESS AND PROCEDURES Splint Application: Posterior short leg fiberglass splint applied to right foot and ankle. Splint applied by tech with direct supervision by me. Reassessed extremity following splint application. Neurovascular intact. Follow-up recommended within 7 days. Fitted for crutches by the tech. Course of Care: Vicodin 1 po. Patient/family counseled. Disposition: Discharged. Condition: stable. CLINICAL IMPRESSION Fracture of the base of the 5th metatarsal. INSTRUCTIONS Use crutches until released. Wear fiberglass splint until released. No weight bearing. Warnings: SEDATIVE MEDICATION: You were given sedative medication during your visit. Do not drive or operate dangerous machinery. Prescription Medications: Hydrocodone/APAP 5mg/325mg: take 1 to 2 orally every 6 hours as needed for pain. Dispense fifteen (15). No refills. Follow-up: Follow up with a tube coverer Sunday in four days. Call for the next available appointment. Understanding of the discharge instructions verbalized by patient and parent. Follow-up with: Niranjan Cui DPM, Podiatry, , [facility], [address] [place] [address], [address] [place] [address] Follow up in four days. Call for an appointment. (Electronically signed by Lito Stone MD 11/08/2016 23:18)
--- NOTE | 2016-11-07 00:33 | ED ORDER SUMMARY ---
..... Patient: BECKY GUILLORY R OrderSheet [facility] VisitID: [id number] [place] [address] 20y, F Registration Date/Time: 11/06/2016 ORDER SHEET Weight: 58.9 kg (stated) Allergies: Sulfa Antibiotics, Eye Drops GENERAL ORDERS: Foot 3V Right Urgent (23:41 11/06/2016 CBradburn R.N. per protocol) (Ack 23:44 IJurca ER Tech1) (23:46 CBradburn R.N.) Ankle 3 or 4V Right Urgent (23:43 11/06/2016 CBradburn R.N. per protocol) (Ack 23:44 IJurca ER Tech1) (23:46 CBradburn R.N.) Splint (LE) (Right) (Short Leg Posterior) (Fiberglass) (00:32 11/07/2016 Svetlana ALCAZAR) (0:39 CBradburn R.N.) Crutches (00:32 11/07/2016 Svetlana ALCAZAR) (0:39 CBradburn R.N.) MEDICATION ORDERS: Hydrocodone-APAP PO 5/325 mg (NOW) (00:32 11/07/2016 Svetlana ALCAZAR) (Ack 0:35 CBradburn R.N.) (0:37 CBradburn R.N.) IV FLUIDS: ORDER SHEET NOTES: [Electronically signed by Lesley Calels R.N. (01:11/07/2016)] [Electronically signed by Lito Stone MD (23:18 11/08/2016)] [Electronically locked/signed by Lesley Calles R.N. (:11/07/2016)]
--- NOTE | 2016-11-07 02:47 | DIAGNOSTIC IMAGING REPORT ---
PROCEDURE: XR FOOT 3 VIEWS - RIGHT INDICATION: TRAUMA/INJURY TECHNIQUE: Three views. COMPARISON: None. FINDINGS: Osseous structures and joint spaces are normal. IMPRESSION: 1. Normal right foot.
--- NOTE | 2016-11-08 23:18 | ED MED RECONCILIATION SUMMARY ---
Patient: BECKY GUILLORY Medication Reconciliation Report [facility] VisitID: [id number] [address] [place] [address] 20y, F Registration Date/Time: 11/06/2016 Weight: 58.9 kg Height/Length: 60 in. BMI: 25.4 ALLERGIES: Eye Drops, Sulfa Antibiotics The patient's Home Medications are listed below: NONE. The source(s) of the original Home Medication information: Not obtained. The following Medications were given to the patient in the Emergency Department: Hydrocodone-APAP [PO] PO 1 tab, administered: 11/07/2016 12:37:00 AM The following Medications were prescribed to the patient: Hydrocodone/APAP 5mg/325mg: take 1 to 2 orally every 6 hours as needed for pain. Dispense fifteen (15). No refills. -- Lito Stone MD
--- NOTE | 2016-11-08 23:18 | ED DISCHARGE INSTRUCTIONS ---
Patient: BECKY GUILLORY General Instructions [facility] VisitID: [id number] [place] [address] 20y, F Registration Date/Time: 11/06/2016 Fracture of the base of the 5th metatarsal. INSTRUCTIONS Use crutches until released. Wear fiberglass splint until released. No weight bearing. Warnings: SEDATIVE MEDICATION: You were given sedative medication during your visit. Do not drive or operate dangerous machinery. Prescription Medications: Hydrocodone/APAP 5mg/325mg: take 1 to 2 orally every 6 hours as needed for pain. Dispense fifteen (15). No refills. Follow-up: Follow up with a offset second press operator Sunday in four days. Call for the next available appointment. Understanding of the discharge instructions verbalized by patient and parent. Follow-up with: Niranjan Cui DPM, Podiatry, , [facility] [address], [address] [address] Follow up in four days. Call for an appointment. ADDITIONAL INFORMATION Crutch Walking Crutch Adjustment Make sure the crutches you use are adjusted to fit you. When you stand, there should be room to fit 2-3 fingers between the top of the crutch and your armpit. Your elbow should be slightly bent when holding the hand bulk pallet builder. Crutch Walking: Place the crutches forward 12" in front of and 6" to the side of your feet. Lean your weight forward as you push down on the handgrips. Your weight should be on your hands and yourstrong leg, not your armpits . Let your body swing through, landing on the strong leg. Advance the crutches forward again. The crutch and the injured leg should move together. Going Up Steps: ("Up with the good") With both crutches on the same step as your feet, push down on the handgrips. Balancing with very light pressure on the weak leg, let your hands support your weight as you raise your strong leg onto the next higher step. Transfer all your weight to your strong leg (still bent) as you move the crutches up to the next step alongside the strong leg. With your weight evenly balanced on the two crutches and your strong leg, straighten your strong knee as you raise the weak leg up to the next step. Going Down Steps: ("Down with the bad") With both crutches on the same step as your feet, push down on the handgrips. With your weight evenly balanced on the two crutches and your strong leg, bend your strong knee as you lower the weak leg down to the next step. Let your strong leg support you (still bent) as you move the crutches down alongside the weak leg. Transfer your weight to your hands, balancing with very light pressure on the weak leg as you lower your strong leg alongside your weak leg. Splint Care, Fiberglass The following will help you care for your splint: It will take up totwo hours for your fiber glass splint to fully harden; therefore, do notapply any pressure on it during that time or else it may break. To prevent swelling under the splint, for thefirst 48 hours: If the splint is on yourarm, keep it in a sling or raised to shoulder level when sitting or standing; rest it on your chest or on a pillow at your side when lying down. If the splint is on yourfoot, keep it propped up above the level of your waist when sitting or lying. Avoid crutch walking as much as possible during this time. Keep the splint/cast dry at all times. Bathe with your splint/cast well out of the water, protected with a large plastic bag, rubber-banded at the top end. If a fiberglass cast or splint gets wet, you can dry it with a hair-dryer. Follow-up care Follow up with your doctor or this facility as advised. When to seek medical care Get prompt medical attention if any of the following occur: Bad odor from the splint or wound-fluid stains the splint The splint cracks or remains wet over 24 hours Increasing tightness or pressure under the splint Fingers or toes become swollen, cold, blue, numb or tingly Increased pain under the splint You have been given the following additional information: Crutch Walking Splint Care, Fiberglass No weight bearing. (Electronically signed by Lito Stone MD 11/08/2016 23:18)
--- NOTE | 2016-11-08 23:18 | ED MAR SUMMARY ---
..... Medication Administration Record [facility] [address] [place] [address] Patient: BECKY GUILLORY Visit ID: [id number] 20y, F Weight: 58.9 kg Height/Length: 60 in BMI: 25.4 ALLERGIES: Eye Drops, Sulfa Antibiotics Given 00:37 11/07/2016 Lesley Calles RLucilaN. Medication Administered: HYDROCODONE-APAP [PO] (HYDROCODONE-ACETAMINOPHEN), Dose: 1 tab 5/325 mg Tablets PO. Medication Ordered: Hydrocodone-APAP PO 5/325 mg (NOW).
--- NOTE | 2016-11-08 23:18 | ED MAR SUMMARY ---
..... Medication Administration Record [facility] [address] [place] [address] Patient: BECKY GUILLORY Visit ID: [id number] 20y, F Weight: 58.9 kg Height/Length: 60 in BMI: 25.4 ALLERGIES: Eye Drops, Sulfa Antibiotics Given 00:37 11/07/2016 Lesley Calles RLucilaN. Medication Administered: HYDROCODONE-APAP [PO] (HYDROCODONE-ACETAMINOPHEN), Dose: 1 tab 5/325 mg Tablets PO. Medication Ordered: Hydrocodone-APAP PO 5/325 mg (NOW).
--- NOTE | 2016-11-08 23:18 | ED MED RECONCILIATION SUMMARY ---
Patient: BECKY GUILLORY Medication Reconciliation Report [facility] VisitID: [id number] [address] [place] [address] 20y, F Registration Date/Time: 11/06/2016 Weight: 58.9 kg Height/Length: 60 in. BMI: 25.4 ALLERGIES: Eye Drops, Sulfa Antibiotics The patient's Home Medications are listed below: NONE. The source(s) of the original Home Medication information: Not obtained. The following Medications were given to the patient in the Emergency Department: Hydrocodone-APAP [PO] PO 1 tab, administered: 11/07/2016 12:37:00 AM The following Medications were prescribed to the patient: Hydrocodone/APAP 5mg/325mg: take 1 to 2 orally every 6 hours as needed for pain. Dispense fifteen (15). No refills. -- Lito Stone MD
--- NOTE | 2016-11-08 23:18 | ED DISCHARGE INSTRUCTIONS ---
Patient: BECKY GUILLORY General Instructions [facility] VisitID: [id number] [place] [address] 20y, F Registration Date/Time: 11/06/2016 Fracture of the base of the 5th metatarsal. INSTRUCTIONS Use crutches until released. Wear fiberglass splint until released. No weight bearing. Warnings: SEDATIVE MEDICATION: You were given sedative medication during your visit. Do not drive or operate dangerous machinery. Prescription Medications: Hydrocodone/APAP 5mg/325mg: take 1 to 2 orally every 6 hours as needed for pain. Dispense fifteen (15). No refills. Follow-up: Follow up with a laminated plastics assembler and gluer Sunday in four days. Call for the next available appointment. Understanding of the discharge instructions verbalized by patient and parent. Follow-up with: Niranjan Cui DPM, Podiatry, , [facility] [address], [address] [address] Follow up in four days. Call for an appointment. ADDITIONAL INFORMATION Crutch Walking Crutch Adjustment Make sure the crutches you use are adjusted to fit you. When you stand, there should be room to fit 2-3 fingers between the top of the crutch and your armpit. Your elbow should be slightly bent when holding the hand band sawmill operator. Crutch Walking: Place the crutches forward 12" in front of and 6" to the side of your feet. Lean your weight forward as you push down on the handgrips. Your weight should be on your hands and yourstrong leg, not your armpits . Let your body swing through, landing on the strong leg. Advance the crutches forward again. The crutch and the injured leg should move together. Going Up Steps: ("Up with the good") With both crutches on the same step as your feet, push down on the handgrips. Balancing with very light pressure on the weak leg, let your hands support your weight as you raise your strong leg onto the next higher step. Transfer all your weight to your strong leg (still bent) as you move the crutches up to the next step alongside the strong leg. With your weight evenly balanced on the two crutches and your strong leg, straighten your strong knee as you raise the weak leg up to the next step. Going Down Steps: ("Down with the bad") With both crutches on the same step as your feet, push down on the handgrips. With your weight evenly balanced on the two crutches and your strong leg, bend your strong knee as you lower the weak leg down to the next step. Let your strong leg support you (still bent) as you move the crutches down alongside the weak leg. Transfer your weight to your hands, balancing with very light pressure on the weak leg as you lower your strong leg alongside your weak leg. Splint Care, Fiberglass The following will help you care for your splint: It will take up totwo hours for your fiber glass splint to fully harden; therefore, do notapply any pressure on it during that time or else it may break. To prevent swelling under the splint, for thefirst 48 hours: If the splint is on yourarm, keep it in a sling or raised to shoulder level when sitting or standing; rest it on your chest or on a pillow at your side when lying down. If the splint is on yourfoot, keep it propped up above the level of your waist when sitting or lying. Avoid crutch walking as much as possible during this time. Keep the splint/cast dry at all times. Bathe with your splint/cast well out of the water, protected with a large plastic bag, rubber-banded at the top end. If a fiberglass cast or splint gets wet, you can dry it with a hair-dryer. Follow-up care Follow up with your doctor or this facility as advised. When to seek medical care Get prompt medical attention if any of the following occur: Bad odor from the splint or wound-fluid stains the splint The splint cracks or remains wet over 24 hours Increasing tightness or pressure under the splint Fingers or toes become swollen, cold, blue, numb or tingly Increased pain under the splint You have been given the following additional information: Crutch Walking Splint Care, Fiberglass No weight bearing. (Electronically signed by Lito Stone MD 11/08/2016 23:18)
== END 2016-11-07 01:11 | disposition home or self-care (01) ==
LOC: ED SRH 23:10
DX: S92.351A Displaced fracture of fifth metatarsal bone, right foot, initial encounter for closed fracture (principal); X50.1XXA Overexertion from prolonged static or awkward postures, initial encounter; Y93.9 Activity, unspecified; Y99.9 Unspecified external cause status; Y92.410 Unspecified street and highway as the place of occurrence of the external cause; F17.210 Nicotine dependence, cigarettes, uncomplicated; Z88.2 Allergy status to sulfonamides; Z88.8 Allergy status to other drugs, medicaments and biological substances